=== PATIENT | male | born 1980 | race Caucasian/White ===

== ENCOUNTER 2019-08-03 18:59 | Emergency (ER) | payer OTHER ==
[~2019-08-03] VITALS: Ht 180.3 cm; Wt 86.0 kg
[~2019-08-03 18:59] MED LIST: DOCU-28 PO; NO HOME MEDS
[2019-08-03 19:00] VITALS: BP 136/75
[2019-08-03] MEDS ORDERED: TETanus/Pertussis (Acell)/Diphther VAC/PF (Tdap-Adult) 0.5ml syringe IMVAC ONE (19:35)
[2019-08-03] MEDS ORDERED: LIDOcaine 1% W/epiNEPHrine 1:200,000 10ml vial IJ ONE (19:35)
[2019-08-03] MEDS ORDERED: CEPH-572 PO (19:47)
[2019-08-03] MEDS ORDERED: SULF1TAB49 PO (19:47)
== END 2019-08-03 20:19 | disposition home or self-care (01) ==
LOC: ER 18:59
DX: L02.31 Cutaneous abscess of buttock (principal); F10.99 Alcohol use, unspecified with unspecified alcohol-induced disorder; F15.90 Other stimulant use, unspecified, uncomplicated; F11.90 Opioid use, unspecified, uncomplicated; Z56.0 Unemployment, unspecified; Z79.899 Other long term (current) drug therapy; Y90.9 Presence of alcohol in blood, level not specified
CPT/HCPCS: 10060; 90471; 90715; 99283

== ENCOUNTER 2022-12-22 21:56 | Emergency (ER) | payer MEDICAID, OTHER ==
[~2022-12-22] VITALS: Ht 180.3 cm; Wt 81.8 kg
[2022-12-22 22:10] VITALS: BP 140/60
[2022-12-22] MEDS ORDERED: HYDR-3973 PO (23:54)
== END 2022-12-23 00:23 | disposition home or self-care (01) ==
LOC: ER 21:56
DX: S62.330A Displaced fracture of neck of second metacarpal bone, right hand, initial encounter for closed fracture (principal); F15.20 Other stimulant dependence, uncomplicated; Z56.0 Unemployment, unspecified; X58.XXXA Exposure to other specified factors, initial encounter; Y93.89 Activity, other specified; Y92.89 Other specified places as the place of occurrence of the external cause; Y99.8 Other external cause status
CPT/HCPCS: 29130; 73130; 99283

== ENCOUNTER 2023-02-19 21:33 | Emergency (ER) | payer MEDICAID, OTHER ==
[~2023-02-19] VITALS: Ht 177.8 cm; Wt 74.0 kg
[2023-02-19 22:28] VITALS: BP 122/83
[2023-02-19] MEDS ORDERED: ketorolac trometh inj. 60 MG/2 ML VIAL IM ONE (23:55)
[2023-02-19] MEDS ORDERED: cyclobenzaprine 10mg tablet PO ONE (23:55)
[2023-02-19] MEDS ORDERED: CYCL-1 PO (23:56)
[2023-02-19] MEDS ORDERED: IBUP-1986 PO (23:56)
--- NOTE | 2023-02-20 00:14 | NUR ---
On dc the pt stated he wanted film. made aware.
[2023-02-20] MEDS ORDERED: HYDROcodone/acetaminophen 10/325mg tab PO ONE (01:25)
== END 2023-02-20 01:38 | disposition home or self-care (01) ==
LOC: ER 21:33
DX: S39.012A Strain of muscle, fascia and tendon of lower back, initial encounter (principal); M54.31 Sciatica, right side; G89.29 Other chronic pain; M54.9 Dorsalgia, unspecified; F15.10 Other stimulant abuse, uncomplicated; F11.10 Opioid abuse, uncomplicated; Z56.0 Unemployment, unspecified; Z79.899 Other long term (current) drug therapy; X58.XXXA Exposure to other specified factors, initial encounter; Y93.89 Activity, other specified; Y92.89 Other specified places as the place of occurrence of the external cause; Y99.8 Other external cause status
CPT/HCPCS: 72131; 96372; 99285; J1885

== ENCOUNTER 2025-06-19 16:35 | Emergency (ER) | payer MEDICAID ==
[~2025-06-19] VITALS: Ht 180.3 cm; Wt 75.0 kg
[~2025-06-19 16:35] MED LIST changes: +CYCL-1 PO; +IBUP-1986 PO
--- NOTE | 2025-06-19 17:28 | RADIOLOGY REPORT ---
EXAM: DI CHEST,TWO VIEWS CLINICAL HISTORY: SOB TECHNIQUE: PA and lateral views of the chest WID: COMPARISON: None FINDINGS: Lines and tubes: None Chest: The heart size and pulmonary vasculature is within normal limits. No pleural effusion, pneumothorax, or consolidation. The osseous structures are grossly intact. Mild multilevel thoracic spondylosis. IMPRESSION: 1. No acute cardiopulmonary abnormality.
[2025-06-19 17:46] LABS: MEAN PLATELET VOLUME 8.7 FL (7.4-10.4); RED CELL DISTRIBUTION WIDTH 13.1 % (11.5-14.5)
[2025-06-19 17:59] LABS: CREATININE 0.88 MG/DL (0.60-1.10); PRO BRAIN NATRIURETIC PEPTIDE 30 PG/ML (0-125); TOTAL CARBON DIOXIDE 30.7 MMOL/L (24-32); eCRCL 111 ML/MIN; eGFR > 90 ML/MIN
[2025-06-19 18:26] VITALS: TEMP 99.4
[2025-06-19] MEDS ORDERED: BENZ-38 PO (18:43)
[2025-06-19] MEDS ORDERED: ALBU8HFA INH (18:43)
--- NOTE | 2025-06-19 18:44 | Physician Documentation ---
History of Present Illness ~ Chief Complaint: Shortness of Breath Stated Complaint: POSS PNEUMONIA Time Seen by MD: 17:11 Primary Medical Doctor: NONE Source: patient Mode of Arrival: POV Exam Limitations: no limitations HPI 44-year-old male who is here with cough and shortness of breath which started four days ago. He states it started after he was outside cutting firewood in the rain. No pre arrival treatment. Reports cough is productive. No sinus pain or congestion, sore throat, chest pain, nausea, vomiting, abdominal pain, edema. No h/o asthma or pneumonia Medication Reconciliation Allergies: Coded Allergies: No Known Allergies (Unverified , 06/19/25) Scheduled Cyclobenzaprine* (Cyclobenzaprine*), 1 TAB PO Q8H Docusate Sodium (Colace), 1 CAP PO Q12H Ibuprofen (Ibuprofen), 1 TAB PO Q8H Miscellaneous Medications Home Med List (No Home Medications), (Reported) Past Medical History Past Medical History: Chronic Back Pain Past Surgical History: orthopedic surgeries Alcohol Use: Occasionally Drug Use: methamphetamine, heroin Lives with: Other Lives In: Other Occupation: unemployed Review of Systems All Other Systems at this time: Reviewed and Negative Physical Exam Vital Signs: Temperature: 99.4, Source: Oral, Heart Rate: 96, Respiratory Rate: 20, BP: 110/57, Pulse Oximetry: 96, Weight: 75.000 Oxygen Flow Rate: 0 Physical Exam GENERAL: Alert, no acute distress. HEENT: NCAT, EOMI, PERRL, normal oropharynx, moist oral mucosa. NECK: Supple, trachea midline. CARDIAC: Regular rate and rhythm, no murmurs, rubs, or gallops. Equal distal pulses. No lower extremity edema, cap refill less than 2 seconds. RESPIRATORY: rhonchi throughout lungs, no wheezing or rales. coughing throughout exam. GASTROINTESTINAL: Non distended, soft, nontender, No guarding or rebound. MUSCULOSKELETAL: Normal range of motion, nontender, no swelling. Normal gait. NEUROLOGICAL: Awake, alert, and oriented x 3. SKIN: Warm/dry, no pallor, no rash. PSYCH: Alert and appropriate. Affect congruent with mood. Speech is clear. Good eye contact. Progress Progress Note EXAM: DI CHEST,TWO VIEWS CLINICAL HISTORY: SOB TECHNIQUE: PA and lateral views of the chest WID: COMPARISON: None FINDINGS: Lines and tubes: None Chest: The heart size and pulmonary vasculature is within normal limits. No pleural effusion, pneumothorax, or consolidation. The osseous structures are grossly intact. Mild multilevel thoracic spondylosis. IMPRESSION: 1. No acute cardiopulmonary abnormality. Results/Orders Results/Orders Completed Orders - ROBIN DEL ROSARIO Acetaminophen 325mg Tablet (Tylenol Tabl (06/19/25 17:20) Medications Received in ER Medications (Trade) Dose Ordered Sig/Theresa Route PRN Reason Start Time Stop Time Status Last Admin Dose Admin (Tylenol tablet) 650 mg ONCE ONCE PO 06/19/25 17:20 06/19/25 17:21 DC 06/19/25 17:27 650 MG Vital Signs 06/19/25 06/19/25 06/19/25 06/19/25 16:51 17:00 17:11 17:53 Temp 101.5 Pulse 111 112 100 Resp 35 17 20 B/P (MAP) 133/76 125/75 (92) 114/54 (74) Pulse Ox 96 97 96 O2 Flow Rate 0 0 0 06/19/25 18:26 Temp 99.4 Pulse 96 Resp 20 B/P (MAP) 110/57 (74) Pulse Ox 96 O2 Flow Rate 0 Laboratory Tests Test 06/19/25 17:06 White Blood Count 12.7 H Red Blood Count 4.48 L Hemoglobin 13.7 L Hematocrit 40.3 L Mean Corpuscular Volume 89.9 Mean Corpuscular Hemoglobin 30.6 Mean Corpuscular Hemoglobin Concent 34.0 Red Cell Distribution Width 13.1 Platelet Count 258 Mean Platelet Volume 8.7 Neutrophils (%) (Auto) 77.5 H Lymphocytes (%) (Auto) 9.5 L Monocytes (%) (Auto) 11.3 Eosinophils (%) (Auto) 1.5 Basophils (%) (Auto) 0.2 Neutrophils # (Auto) 9.9 H Lymphocytes # (Auto) 1.2 Monocytes # (Auto) 1.4 H Eosinophils # (Auto) 0.2 Basophils # (Auto) 0.0 CBC Comment Sodium Level 132 L Potassium Level 3.2 L Chloride Level 96 L Carbon Dioxide Level 30.7 Anion Gap 5 L Blood Urea Nitrogen 13 Creatinine 0.88 Estimated GFR/1.73 m2 > 90 BUN/Creatinine Ratio 14.8 Glucose Level 128 H Lactic Acid Level 1.7 Calcium Level 8.8 Pro-B-Type Natriuretic Peptide 30 Albumin 3.6 Chemistry Comments Medical Decision Making Additional information obtaine: N/A Findings n/a Heart Score: 0 Differential Dx:Considerations: Include: anxiety, asthma, bronchitis, cardiogenic shock, CHF, COPD, dysrhythmia, hypertension, accelerated, hypertension, essential, hypertension, malignant, hyperventilation, hyponatremia, myocardial infarction, panic attack, pneumonia, pneumonitis, pneumothorax, PSVT, pulmonary embolism, respiratory distress, respiratory failure, sinusitis, upper resp. infection Departure Time of Disposition: 18:40 Disposition: 01 HOME / SELF CARE / HOMELESS Impression: Primary Impression: Bronchitis Condition: Stable Discharge Instructions: Upper Respiratory Infection, Adult Additional Instructions: If symptoms worsen, return to ER Referrals: NO PRIMARY CARE PROVIDER (PCP) Prescriptions albuterol inhaler (Pro-Air Inhaler) 8.5 Gm Inhaler 2 PUFFS INH Q4HPRN PRN for wheezing for 30 Days, #18 GM Prov: ROBIN DEL ROSARIO 06/19/25 Benzonatate* (Benzonatate*) 100 Mg Capsule 1 CAP PO Q8H for cough for 10 Days, #30 CAP Prov: ROBIN DEL ROSARIO 06/19/25 Education Educated: Patient Educated regarding: diagnosis, treatment, need for follow up Signature Scribe Signature: x Attestation: ROBIN Sharma Jun 19, 2025 18:44
[2025-06-19 19:04] VITALS: BP 99/67; PULSE 98; RESP 16; O2SAT 99
--- NOTE | 2025-06-20 08:18 | ELECTROCARDIOGRAPH REPORT ---
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
== END 2025-06-19 19:07 | disposition home or self-care (01) ==
LOC: ER 16:36
DX: J40 Bronchitis, not specified as acute or chronic (principal); F15.90 Other stimulant use, unspecified, uncomplicated; F11.90 Opioid use, unspecified, uncomplicated
CPT/HCPCS: 36415; 71046; 80048; 83605; 83880; 85025; 87040; 93005; 99285